=== PATIENT | female | born 1960 | race Caucasian/White ===

== ENCOUNTER 2025-01-16 10:43 | Emergency (ER) | payer MEDICARE, MEDICAID, SELFPAY ==
--- OUTSIDE RECORDS SUMMARY | 2023-08-10 06:25 | XMS_ITS ---
Author Organization [facility] [employer] Address [address] [address] Care Team Providers Care Mental Health Case Manager Name Role Phone Khurram Yang Primary Care Provider [phone] MEDICATIONS Medication SIG (Take, Route, Frequency, Duration) Notes Start Date End Date Status Lancets 30G - Tests once a day E11 .9 Once a day for 50 days 11/08/2020 Active Encounters Encounter Location Date Provider Diagnosis [facility] [employer] [address] [facility] [address] [place] [address] 08/10/2023 Khurram Yang Type 2 diabetes mellitus with other specified complication E11.69 ASSESSMENTS Encounter Date Diagnosis Assessment Notes Treatment Notes Treatment Clinical Notes Section Notes 08/10/2023 Type 2 diabetes mellitus with other specified complication (ICD-10 - E11.69) PLAN OF TREATMENT Medication Medication Name Sig Start Date Stop Date Notes Lancets 30G - Tests once a day E11 .9 Once a day for 50 days 11/08/2020 Progress Notes * Ene RAYDOB:1960 (63 yo F)Acc No.[id number]:08/10/2023 Patient: Ene RAY :1960 Age:63 Y Sex:Female Address:[address] [place] [address] ,[address] [place] [address], [address] * Refills Refill Lancets 30G Miscellaneous, -, E11.9, 50, Tests once a day, Once a day, 50 days, Refills=1 * true * Date:
--- OUTSIDE RECORDS SUMMARY | 2023-09-02 06:00 | XMS_ITS ---
Author Organization [facility] [employer] Address [address] [address] Care Team Providers Care Pipe Fitter Gas Pipe Name Role Phone Khurram Yang Primary Care Provider ALLERGIES Allergen (clinical drug ingredient) Drug/Non Drug Allergy documented on EMR Reaction Allergy Type Onset Date Status Dragweed (uncoded) Unknown Allergy A ctive Milk (uncoded) Unknown Allergy Activ e Peanuts (uncoded) Unknown Allergy Ac tive Roaches (uncoded) Unknown Allergy Ac tive REASON FOR VISIT 3 month f/u MEDICATIONS Medication SIG (Take, Route, Frequency, Duration) Notes Start Date End Date Status Omeprazole 20 MG 1 capsule 30 minutes before morning meal Orally Once a day for 90 days Active Simvastatin 20 MG 1 tablet in the even ing Orally Once a day for 90 days Active Losartan Potassium 25 MG 2 tablet Orally Once a day for 90 days Active Ventolin HFA 108 (90 Base) MCG/ACT 2 puffs as needed Inhalation every 6 hrs for 90 days Active Advair HFA 115-21 MCG/ACT 2 puffs Inhala tion Twice a day for 90 days Active One Touch Ultra Test Strips test strips E11.9 Once a day for 50 days 12/23/2021 Active Vitamin D 50 MCG (2000 UT) 1 tablet Oral ly Once a day for 90 days Active Albuterol Sulfate (2.5 MG/3ML) 0.083% 3 ml as needed Inhalation Three times a day Active oxyBUTYnin Chloride 5 MG 1 tablet Orally Twice a day Active Fluticasone Propionate 50 MCG/ACT 1 spray in each nostril Nasally Once a day for 90 day(s) Active Glucometer of pts. choice Needs to test once daily Tests once a day E11.9 Once a day for 50 days 11/08/2020 Active Topiramate 100 MG 1 tablet Orally Twic e a day for 90 days Active Furosemide 20 MG 1 tablet Orally Once a day for 90 days Active Lancets 30G - Tests once a day E11 .9 Once a day for 50 days 11/08/2020 Active Montelukast Sodium 10 MG 1 tablet Orally Once a day for 90 days Active Sertraline HCl 50 MG 1 tablet Orally Onc e a day for 90 days Active metFORMIN HCl 500 MG 1 tablet with meals Orally Twice a day for 90 days Active SOCIAL HISTORY Sex Assigned At : Social History Observation Description Sex Assigned At Unknown Alcohol Screen Question Answer Notes Did you have a drink containing alcohol in the p ast year? No Points 0 Interpretation Negative Encounters Encounter Location Date Provider Diagnosis [facility] [employer] Teacher Replaced By [facility] [address] 09/02/2023 Khurram Yang ASSESSMENTS Encounter Date Diagnosis Assessment Notes Treatment Notes Treatment Clinical Notes Section Notes 09/02/2023 Other PLAN OF TREATMENT No Information Progress Notes * Ene RAYDOB:1960 (64 yo F)Acc No.[id number]:09/02/2023 Progress Notes Patient: Ene RAY Provider: Khurram Yang MD :1960 Age:63 Y Sex:Female Date:09/02/2023 Address:[address] [place], [place] [id number] Subjective: * Chief Complaints: * 1. 3 month f/u. * Medical History: AAFP Risk Level 3, Arthritis, Anemia, Migraine Headaches, Diabetes Mellitus Type 2, Back Pain, High or Low blood pressure, Stroke, Hypertension, Hyperlipidemia, Depressive Disorder, Obstrucitve Sleep Apnea, Choronic Obstructive Pulmonry Diseae, Refused flu/Pneumonia vaccine 2017/2018/. * Surgical History: Lumbar Disectomy 2004, Colonoscopy 2015. * Hospitalization/Major Diagno stic Procedure: None . * Family History: Father: , diagnosed with Other malignant neoplasm of unspecified site, DM TYPE 2, Hypertension, Unspecified heart disease, Unspecified cerebral artery occlusion with cerebral infarction. Mother: , diagnosed with DM TYPE 2, Unspecified heart disease, Other malignant neoplasm of unspecified site. Siblings: Depression, diagnosed with Unspecified heart disease. Paternal Grand Father: diagnosed with DM TYPE 2. Paternal Grand Mother: diagnosed with Unspecified cerebral artery occlusion with cerebral infarction. 1 brother(s) , 2 sister(s) . . * Social History: Drugs/Alcohol: Drugs Have you used drugs other than those for medical reasons in the past 12 months? No Alcohol Screen Did you have a drink containing alcohol in the past year? No Points 0 Interpretation Negative * Medications: Taking Glucometer of pts. choice Needs to test once daily 30 Test strips Tests once a day E11.9 Once a day , Taking One Touch Ultra Test Strips test strips E11.9 Once a day , Taking Albuterol Sulfate (2.5 MG/3ML) 0.083% Nebulization Solution 3 ml as needed Inhalation Three times a day , Taking Vitamin D 50 MCG (2000 UT) Tablet 1 tablet Orally Once a day , Taking Fluticasone Propionate 50 MCG/ACT Suspension 1 spray in each nostril Nasally Once a day , Taking oxyBUTYnin Chloride 5 MG Tablet 1 tablet Orally Twice a day , Taking Losartan Potassium 25 MG Tablet 2 tablet Orally Once a day , Taking Simvastatin 20 MG Tablet 1 tablet in the evening Orally Once a day , Taking Advair HFA 115-21 MCG/ACT Aerosol 2 puffs Inhalation Twice a day , Taking Ventolin HFA 108 (90 Base) MCG/ACT Aerosol Solution 2 puffs as needed Inhalation every 6 hrs , Taking Omeprazole 20 MG Capsule Delayed Release 1 capsule 30 minutes before morning meal Orally Once a day , Taking metFORMIN HCl 500 MG Tablet 1 tablet with meals Orally Twice a day , Taking Sertraline HCl 50 MG Tablet 1 tablet Orally Once a day , Taking Furosemide 20 MG Tablet 1 tablet Orally Once a day , Taking Topiramate 100 MG Tablet 1 tablet Orally Twice a day , Taking Montelukast Sodium 10 MG Tablet 1 tablet Orally Once a day , Taking Lancets 30G - Miscellaneous Tests once a day E11.9 Once a day * Allergies: Milk, Peanuts, Dragweed, Roaches. Objective: Assessment: Plan: * Treatment: * Images: Care Plan Details* * Sign off status: Pending * Provider: Khurram Yang MD Date: 09/02/2023
[2025-01-16] VITALS (16 sets, daily range): BP systolic 125–146; BP diastolic 74–83; PULSE 56–110; TEMP 36.6; O2SAT 92–99; BMI 34.0
--- NOTE | 2025-01-16 10:49 | ED.GENADUL1 ---
HPI HPI - General Adult General Chief complaint: Seizure Stated complaint: POSSIBLE SEIZURE Time Seen by Provider: 01/16/25 10:44 History of Present Illness HPI narrative: 64-year-old female to the emergency department chief complaint of seizure-like episode at her snf. Patient was reported to have been staring off in the activity center staff was concerned that she might have a seizure so they laid her down on the ground. The patient had some shaking movements. She returned back to her baseline afterwards. No postictal period. patient reports she is otherwise been at her baseline health. She denies any vision changes, numbness, weakness, tingling, difficulty walking. She denies any chest pain, shortness of breath or palpitations. Past medical history: Major depressive disorder, type 2 diabetes, hypertension, emphysema, TIA, conversion disorder with seizure-like activity, migraines Related Data Home Medications ?Medication ?Instructions ?Recorded ?Confirmed acetaminophen 500 mg capsule 500 mg PO Q6H PRN pain 01/16/25 01/16/25 albuterol sulfate 90 mcg/actuation 2 inh inhalation Q6H PRN shortness 01/16/25 01/16/25 aerosol inhaler of breath or wheezing amitriptyline 25 mg tablet 25 mg PO .qhs 01/16/25 01/16/25 aspirin 81 mg tablet,delayed 81 mg PO DAILY 01/16/25 01/16/25 release (Adult Aspirin Regimen) bisacodyl 5 mg tablet,delayed 5 mg PO DAILY PRN constipation 01/16/25 01/16/25 release (Fleet Bisacodyl) cholecalciferol (vitamin D3) 25 50 mcg PO DAILY 01/16/25 01/16/25 mcg (1,000 unit) capsule (Vitamin D3) clopidogrel 75 mg tablet 75 mg PO DAILY 01/16/25 01/16/25 dextromethorphan-guaifenesin 10 10 ml PO Q6H PRN cough 01/16/25 01/16/25 mg-100 mg/5 mL oral liquid empagliflozin 25 mg tablet 25 mg PO DAILY 01/16/25 01/16/25 (Jardiance) fluticasone 250 mcg-salmeterol 50 1 inh inhalation BID 01/16/25 01/16/25 mcg/dose blistr powdr for inhalation fluticasone propionate 50 1 spray intranasal DAILY 01/16/25 01/16/25 mcg/actuation nasal spray,suspension (24 Hour Allergy Relief) furosemide 20 mg tablet 20 mg PO DAILY 01/16/25 01/16/25 gabapentin 100 mg capsule 100 mg PO .qhs 01/16/25 01/16/25 losartan 50 mg tablet 50 mg PO DAILY 01/16/25 01/16/25 magnesium hydroxide 400 mg/5 mL 30 ml PO DAILY PRN constipation 01/16/25 01/16/25 oral suspension (Milk of Magnesia) mecobalamin (vitamin B12) 1,000 2,000 mcg PO DAILY 01/16/25 01/16/25 mcg chewable tablet meloxicam 15 mg tablet 15 mg PO DAILY 01/16/25 01/16/25 metformin 500 mg tablet 500 mg PO DAILY 01/16/25 01/16/25 montelukast 10 mg tablet 10 mg PO QPM 01/16/25 01/16/25 omeprazole 20 mg capsule,delayed 20 mg PO DAILY 01/16/25 01/16/25 release potassium chloride 10 mEq 10 meq PO DAILY 01/16/25 01/16/25 capsule,extended release sertraline 100 mg tablet 100 mg PO DAILY 01/16/25 01/16/25 simvastatin 20 mg tablet 20 mg PO QPM 01/16/25 01/16/25 topiramate 200 mg tablet (Topamax) 200 mg PO BID 01/16/25 01/16/25 Allergies Allergy/AdvReac Type Severity Reaction Status Date / Time No Known Drug Allergies Allergy Verified 01/16/25 10:43 Review of Systems ROS Status of ROS 10 or more systems reviewed and unremarkable except as noted in history and below PFSH PFS Social History Little interest or pleasure in doing things: not at all Feeling down, depressed, or hopeless: not at all Exam Narrative Exam Narrative: VITALS: I have reviewed the triage vital signs. GENERAL: Well developed, well appearing adult in no acute distress. NEURO: Alert and oriented x4. Moves all extremities. Face is symmetric and expressive. Cranial nerves II through XII grossly intact as tested. Muscular strength and sensation grossly intact upper and lower extremities bilaterally. No dysarthria. No aphasia. No ataxia. Normal gait. NIHSS 0. EYES: PERRL. No scleral icterus or conjunctival injection. No discharge. HENT: Normocephalic, atraumatic. Hearing is grossly intact. Nares grossly patent and without discharge. Mucous membranes moist. NECK: No JVD. Patient moves neck without restriction. CARDIO: Rhythm regular. Normal rate. No murmur, rub, or gallop. Pulses equal bilaterally in the upper and lower extremity. No lower extremity edema. PULM: Lungs clear to auscultation in all martinez. No wheezes, rales, or rhonchi. No conversational dyspnea. No splinting, stridor, or accessory muscle use. GI/: Abdomen is soft and non-tender. Normoactive bowel sounds. EXTREMITIES: Symmetric muscle bulk. No joint swelling. No clubbing, cyanosis, or deformity. SKIN: Warm and dry. Normal turgor. No rash or lesions appreciated. PSYCH: Mood, affect, and interaction is appropriate to the setting. Constitutional Vital Signs, click to edit/add: Last Vital Signs Temp 97.9 F 01/16/25 10:44 Pulse 59 L 01/16/25 11:20 Resp 15 01/16/25 11:20 BP 146/83 H 01/16/25 10:44 Pulse Ox 96 01/16/25 11:20 O2 Del Method Room Air 01/16/25 10:44 Course Vital Signs Vital signs: Vital Signs Blood Pressure 146/83 H 01/16/25 10:43 Temperature 97.9 F 01/16/25 10:44 Pulse Rate 59 L 01/16/25 11:20 Respiratory Rate 15 01/16/25 11:20 Blood Pressure 146/83 H 01/16/25 10:44 Pulse Oximetry 96 01/16/25 11:20 Oxygen Delivery Method Room Air 01/16/25 10:44 Medical Decision Making [facility] Narrative Medical decision making narrative: 64-year-old female to the emergency department with chief complaint of seizure-like activity event that occurred at her snf. Vital stable, the patient is afebrile. She has a history of conversion disorder with seizure activity in her medical history. Episode does not sound like a true seizure, no postictal phase, history of pseudoseizures. Cannot obtain a good history on her seizure episodes however. Will obtain basic labs and imaging. CT head without acute findings. Lab work is unremarkable Discussion was had with her POA/ niece at the bedside. Patient has longstanding history of psychogenic nonepileptic seizures. She has been seen dozens of times at [facility] as well as [facility] for this. She is currently working with neurology and counseling. Patient appropriate for discharge back to her facility. Recommend she also get psychiatry involved given the complexity and longstanding issue with these psychogenic nonepileptic seizures. Medical Records Medical records reviewed: Yes I reviewed the patient's medical records Lab Data Labs: Lab Results 01/16/25 Range/Units 11:03 WBC 5.3 (4.0-11.0) 10^3/uL RBC 3.40 L (4.20-5.40) 10^6/uL Hgb 10.7 L (12.0-16.0) g/dL Hct 33.2 L (36.0-48.0) % MCV 97.6 (81.0-99.0) fL MCH 31.5 (26.7-34.0) pg MCHC 32.2 (29.9-35.2) g/dL RDW 14.6 (11.0-15.0) % Plt Count 285 (150-450) 10^3/uL MPV 9.7 (9.5-13.5) fL Neut % (Auto) 65.2 (43.0-75.0) % Lymph % (Auto) 24.2 (20.5-60.0) % Allen % (Auto) 6.3 (1.7-12.0) % Eos % (Auto) 3.2 (0.9-7.0) % Baso % (Auto) 0.9 (0.2-2.0) % Neut # (Auto) 3.4 (1.4-6.5) 10^3/uL Lymph # (Auto) 1.3 (1.2-3.8) 10^3/uL Allen # (Auto) 0.3 (0.3-0.8) 10^3/uL Eos # (Auto) 0.2 (0.0-0.7) 10^3/uL Baso # (Auto) 0.1 (0.0-0.1) 10^3/uL Abs Immat Gran (auto) 0.01 (0.00-0.03) 10^3/uL Imm/Tot Granulo (auto) 0.2 (0.0-0.5) % Sodium 144 (136-145) mmol/L Potassium 3.9 (3.5-5.1) mmol/L Chloride 110 H (98-107) mmol/L Carbon Dioxide 28.5 (21.0-32.0) mmol/L Anion Gap 9.4 BUN 25.0 H (7.0-18.0) mg/dL Creatinine 1.08 H (0.55-1.02) mg/dL Est GFR ( Amer) >60 (>=60 mL/min/1.73m^2) Est GFR (Non-Af Amer) 51 L (>=60 mL/min/1.73m^2) BUN/Creatinine Ratio 23.1 Glucose 108 H (74-106) mg/dL Calcium 8.8 (8.5-10.1) mg/dL Troponin I High Sens 4.9 (4.0-51.3) pg/mL ECG Data Attestation: I personally reviewed and interpreted this ECG as follows: (NSR@59. No STEMI. Normal QTC 409. ) Discharge Plan Discharge Chief Complaint: Seizure Clinical Impression: Psychogenic nonepileptic seizure Patient Disposition: Home, Self-Care Condition: Good Mode of Transportation: Private Vehicle Prescriptions / Home Meds: No Action acetaminophen 500 mg capsule 500 mg PO Q6H PRN (Reason: pain) amitriptyline 25 mg tablet 25 mg PO .qhs albuterol sulfate 90 mcg/actuation HFA aerosol inhaler 2 inh inhalation Q6H PRN (Reason: shortness of breath or wheezing) aspirin [Adult Aspirin Regimen] 81 mg tablet,delayed release (DR/EC) 81 mg PO DAILY bisacodyl [Fleet Bisacodyl] 5 mg tablet,delayed release (DR/EC) 5 mg PO DAILY PRN (Reason: constipation) clopidogrel 75 mg tablet 75 mg PO DAILY fluticasone propionate [24 Hour Allergy Relief] 50 mcg/actuation spray,suspension 1 spray intranasal DAILY Rx Instructions: administer into each nostril fluticasone propion-salmeterol 250-50 mcg/dose blister with device 1 inh inhalation BID furosemide 20 mg tablet 20 mg PO DAILY gabapentin 100 mg capsule 100 mg PO .qhs dextromethorphan-guaifenesin 10-100 mg/5 mL liquid 10 ml PO Q6H PRN (Reason: cough) Jardiance 25 mg tablet 25 mg PO DAILY losartan 50 mg tablet 50 mg PO DAILY meloxicam 15 mg tablet 15 mg PO DAILY metformin 500 mg tablet 500 mg PO DAILY magnesium hydroxide [Milk of Magnesia] 400 mg/5 mL suspension 30 ml PO DAILY PRN (Reason: constipation) montelukast 10 mg tablet 10 mg PO QPM omeprazole 20 mg capsule,delayed release(DR/EC) 20 mg PO DAILY potassium chloride 10 mEq capsule, extended release 10 meq PO DAILY sertraline 100 mg tablet 100 mg PO DAILY simvastatin 20 mg tablet 20 mg PO QPM topiramate [Topamax] 200 mg tablet 200 mg PO BID mecobalamin (vitamin B12) 1,000 mcg tablet,chewable 2,000 mcg PO DAILY cholecalciferol (vitamin D3) [Vitamin D3] 25 mcg (1,000 unit) capsule 50 mcg PO DAILY Print Language: Jordanian Instructions: Conversion Disorder (ED) Additional Instructions: Call the office of your primary care doctor to arrange for follow-up within the above-stated timeframe. Your ED visit was focused on your acute issue and does not replace primary care. You should review your labs, imaging, and diagnoses from this ED visit with your primary care physician. There may be non-emergent/ incidental findings that need further evaluation. You should review your vital signs including blood pressure with your PCP. If you were prescribed medications you should discuss possible side-effects and drug interactions with your pharmacist. Call 911 or go to the nearest Emergency Department if you develop any new or worsening symptoms. Continue follow-up with neurology. Consider psychiatry consultation on this patient with longstanding psychogenic nonepileptic seizures as well. Referrals: JOVI BALLARD [Primary Care Provider, Family Practice] - 1 week
--- NOTE | 2025-01-16 10:54 | ECG_ITS ---
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 Measurements Intervals [place] Rate: 59 P: -12719 [place]: 186 QRS: 72 QRSD: 86 T: 90 QT: 410 QTc: 409 Interpretive Statements Normal sinus rhythm 8102 Low QRS voltage in chest leads abnormal ECG No previous ECG available for comparison Electronically Signed On 01-17-2025 6:36:44 EDT by SADIE HERNANDEZ M.D.
--- NOTE | 2025-01-16 10:55 | CT_ITS ---
The [address] [address] Patient Name: PAYTON WING MRN: [id number] date: 1960 Sex: F Assigned Patient Location: ER Current Patient Location: .[facility] Accession/Order Number: [id number] Exam Date: 01/16/2025 11:46 Report Date: 01/16/2025 11:50 At the request of: MICHELL AGUDELO MD Procedure: CT head/brain wo con CT BRAIN WITHOUT CONTRAST: CLINICAL HISTORY: seizure activity and frontal headaches COMPARISON: None TECHNIQUE: Contiguous axial unenhanced images were obtained through the brain. This CT exam was performed using one or more following dose reduction techniques: Automated exposure control, adjustment of the mA and/or kV according to patient size, or use of iterative reconstruction technique. FINDINGS: There is cortical atrophy, greatest in the frontal region. The ventricles are normal in size and position. Subtle white matter hypodensity is noted. There is minor carotid siphon plaque and this may be microvascular disease. There are no additional areas of abnormal attenuation. There is no hemorrhage, mass effect or extra-axial collections. Empty sella is suspected. The imaged paranasal sinuses and mastoid air cells are clear. CT/CT head/brain wo con IMPRESSION: ATROPHY AND MINOR SUSPECTED MICROVASCULAR CHANGES. NO ACUTE INTRACRANIAL ABNORMALITY. Impression dictated by: Melina Freeman M.D. 01/16/2025 11:50 AM Dictation Location: [place] [address] Electronically authenticated by: [id number] Y Date: 01/16/2025 11:50
[2025-01-16 11:10] LABS: Hematocrit 33.2 % (36.0-48.0); Hemoglobin 10.7 g/dL (12.0-16.0); Immature Granulocytes Abs Auto 0.01 10^3/uL (0.00-0.03); Immature Granulocytes Pct Auto 0.2 % (0.0-0.5); Lymphocytes Absolute Auto 1.3 10^3/uL (1.2-3.8); Mean Corpuscular HGB Conc 32.2 g/dL (29.9-35.2); Mean Corpuscular Hemoglobin 31.5 pg (26.7-34.0); Mean Corpuscular Volume 97.6 fL (81.0-99.0); Platelet Count 285 10^3/uL (150-450); Red Blood Count 3.40 10^6/uL (4.20-5.40); White Blood Count 5.3 10^3/uL (4.0-11.0)
[2025-01-16 11:37] LABS: Anion Gap 9.4; Blood Urea Nitrogen 25.0 mg/dL (7.0-18.0); Calcium 8.8 mg/dL (8.5-10.1); Carbon Dioxide 28.5 mmol/L (21.0-32.0); Chloride 110 mmol/L (98-107); Estimated GFR (African America >60 (>=60 mL/min/1.73m^2); Estimated GFR (Non-African Ame 51 (>=60 mL/min/1.73m^2); Glucose 108 mg/dL (74-106); Potassium 3.9 mmol/L (3.5-5.1); Sodium 144 mmol/L (136-145)
--- OUTSIDE RECORDS SUMMARY | 2025-01-16 11:37 | XMS_ITS | Encounter Summary ---
Author Organization [facility] Address [id number] [address] [place] [address] Care Team Providers Care Heat Treatment Technician Name Role Phone Yanick Cornejo Primary Care Provider + Reason for Visit * Reason Comments Med Refill Encounter Details Date Type Department Care Team ([facility] st Contact Info) Description 05/24/2024 Refill [facility] [address] [place] [address] Yanick Cornejo APRN-CNP [address] [place] [address] Intractable migraine without status migrainosus, unspecified migraine type Social History Tobacco Use Types Packs/Day Years Used Date Smoking Tobacco: Former Cigarettes Smokeless Tobacco: Never Alcohol Use Standard Drinks/Week Comments Not Currently 0 (1 standard drink = 0.6 oz pur e alcohol) AUDIT-C Answer Date Recorded Q1: How often do you have a drink containing alcohol? Never 05/02/2023 Q2: How many drinks containi ng alcohol do you have on a typical day when you are drinking? Patient does not drink Q3: How often do you have si x or more drinks on one occasion? Never 05/02/2023 PHQ-2 Answer Date Recorded Total Score 2 02/15/2024 Childcare Answer Date Recorded Childcare Unknown 12/27/2018 Employment Answer Date Recorded Employment Unknown 12/27/2018 Hunger Screening Answer Date Recorded Within the past 12 months we worried whether our food would run out before we got money to buy more. Never True 04/21/2024 Within the past 12 months th e food we bought just didn't last and we didn't have money to get more. Never True 04/21/2024 Purpose - Life Answer Date Recorded Purpose and direction in life Unknown Comments Unknown Sex and Gender Information Value Date Recorded Sex Assigned at Not on file Legal Sex Female 8:50 PM EDT Gender Identity Not on file Sexual Orientation Not on file documented as of this encounter Plan of Treatment Upcoming Encounters Date Type Department Care Team ([facility] Contact Info) Description 03/15/2025 10:00 AM EDT Office Visit [facility] [address] [place] [address] Yanick Cornejo, WINCH DERRICK OPERATOR-MORTGAGE ANALYST [address] [place] [phone] 06/12/2025 11:00 AM EST Office Visit [facility] [address] [place] [phone] documented as of this encounter Visit Diagnoses Diagnosis Intractable migraine without status migrainosus, unspecified migraine type documented in this encounter Additional Health Concerns Assessment Noted Time PHQ-9 Depression Total Score: 2 02/15/20 24 9:44 AM EDT A Body Mass Index follow-up plan has been documented for the patient 03/16/2024 2:19 PM EDT documented as of this encounter Care Teams Heat Treatment Technician Relationship Specialty Start Date End Date Yanick Cornejo, WINCH DERRICK OPERATOR-MORTGAGE ANALYST [address] [place] [phone] PCP - General Nurse Practitioner 02/15/24 documented as of this encounter
--- OUTSIDE RECORDS SUMMARY | 2025-01-16 11:37 | XMS_ITS | Patient Health Record ---
Author Organization [facility] [employer] Address [address] [address] Care Team Providers Care Management Lead Name Role Phone Khurram Yang Primary Care Provider [phone] ALLERGIES Allergen (clinical drug ingredient) Drug/Non Drug Allergy documented on EMR Reaction Allergy Type Onset Date Status Dragweed (uncoded) Unknown Allergy A ctive Milk (uncoded) Unknown Allergy Activ e Peanuts (uncoded) Unknown Allergy Ac tive Roaches (uncoded) Unknown Allergy Ac tive REASON FOR REFERRAL No Information MEDICATIONS Medication SIG (Take, Route, Frequency, Duration) Notes Start Date End Date Status Glucometer of pts. choice Needs to test once daily Tests once a day E11.9 Once a day for 50 days 11/08/2020 Active Omeprazole 20 MG 1 capsule 30 minutes before morning meal Orally Once a day for 90 days Active Vitamin D 50 MCG (2000 UT) 1 tablet Oral ly Once a day for 90 days Active Topiramate 100 MG 1 tablet Orally Twic e a day for 90 days Active Albuterol Sulfate (2.5 MG/3ML) 0.083% 3 ml as needed Inhalation Three times a day Active Furosemide 20 MG 1 tablet Orally Once a day for 90 days Active oxyBUTYnin Chloride 5 MG 1 tablet Orally Twice a day Active Lancets 30G - Tests once a day E11 .9 Once a day for 50 days 11/08/2020 Active Fluticasone Propionate 50 MCG/ACT 1 spray in each nostril Nasally Once a day for 90 day(s) Active Montelukast Sodium 10 MG 1 tablet [...] a day for 50 days 12/23/2021 Active Sertraline HCl 50 MG 1 tablet Orally Onc e a day for 90 days Active metFORMIN HCl 500 MG 1 tablet with meals Orally Twice a day for 90 days Active IMMUNIZATIONS Vaccine Route Administration Date Status Comme nts Influenza Quad-Sanofi Unknown 05/10/2019 Administered Flucelvax 2020 IM Intramuscular 05/08/2021 Administered Flucelvax Unknown 05/23/2022 Administered COVID 19-Pfizer Unknown 01/28/2021 Administered COVID 19-Pfizer Unknown 02/18/2021 Administered Covid 19 Bivalent Booster Pfser Unknown 05/23/2022 Administered Afluria IM Intramuscular 04/26/2023 Administered SOCIAL HISTORY Sex Assigned At : Social History Observation Description Sex Assigned At Unknown Alcohol Screen Question Answer Notes Did you have a drink containing alcohol in the p ast year? No Points 0 Interpretation Negative PROBLEMS Problem Type ICD Code Onset Dates Problem Status W/U Status Risk SNOMED Code Notes Problem Depressive disorder (F32.9) Active confirmed Depressive disorder (07249298) Problem Obstructive sleep apnea (G47.33) Active confirmed Obstructive s leep apnea (53872058) Problem Hypothyroid (E03.9) Active confirmed Hypothyroid (92187185) Problem Type 2 diabetes mellitus with other specified complication (E11.69) Active confirmed 24625429 Problem Obesity, unspecified (E66.9) Active confirmed 951134722 Problem Other emphysema (J43.8) Active confirmed 45743704 Problem Other specific arthropathies, not elsewhere classified, left shoulder (M12.812) Active confirmed 304473432 Problem Unspecified rotator cuff tear or rupture of left shoulder, not specified as traumatic (M75.102) Active confirmed [id number] Problem Urge incontinence (N39.41) Active confirmed 23394901 Problem Essential hypertension (I10) Active confirmed 84882644 Problem Diabetes, polyneuropathy (E11.42) Active confirmed Polyneuropathy due to type 2 diabetes mellitus (261896748) Problem Hyperlipidemia, unspecified hyperlipidemia type (E78.5) Active confirmed 87438519 Problem Risk Level 3 (RL000.3) Active confirmed Problem Migraine without aura and without status migrainosus, not intractable (G43.009) Active confirmed 729251459 PLAN OF TREATMENT Pending Test Test Name Order Date Echocardiogram 08/13/2020 MRI : Upper Ext Joint W and WO Contrast 09/01/2019 MRI : Upper Ext Joint W/O Contrast 09/06 Polysomnogram 08/21/2022 Pulmonary Function Test with bronchodilators and methacholine challenge test 12/01/2019 LEXISCAN CARDIOLYTE STRESS TEST 01/12/20 20 EMG/NCV LEGS 11/06/2021 Glucose Random 01/31/2019 CBC w/ Auto Diff 07/01/2018 CBC w/ Auto Diff 10/04/2018 CBC w/ Auto Diff 12/01/2019 CBC w/ Auto Diff 08/09/2020 CBC w/ Auto Diff 04/12/2018 CBC w/ Auto Diff 09/30/2017 Comprehensive Metabolic Panel 09/30/2017 Comprehensive Metabolic Panel 04/12/2018 Comprehensive Metabolic Panel 08/09/2020 Comprehensive Metabolic Panel 12/01/2019 Comprehensive Metabolic Panel 10/04/2018 Comprehensive Metabolic Panel 07/01/2018 Hemoglobin A1c 10/04/2018 Hemoglobin A1c 08/21/2022 Hemoglobin A1c 09/30/2017 TSH 09/30/2017 TSH 04/12/2018 TSH 07/01/2018 TSH 10/04/2018 TSH 12/01/2019 TSH 08/09/2020 Free T4 08/09/2020 Free T4 12/01/2019 Free T4 07/01/2018 Free T4 10/04/2018 Free T4 04/12/2018 Free T4 09/30/2017 MA Digital Screening Breast w/ Tomosynth esis 01/11/2018 MA Digital Screening Breast w/ Tomosynth esis 04/26/2023 MA Digital Screening Breast w/ Tomosynth esis 02/07/2021 MA Digital Screening Breast w/ Tomosynth esis 10/04/2018 MA Digital Screening Breast w/ Tomosynth esis 07/01/2018 Insurance Providers Payer Name Payer Address Payer Phone Subscriber Number Group Number Insured Name Patient Relationship to Insured Coverage Start Date Coverage End [place] [address] [place] [address] [id number] Flor, Ene Self - patient is the insured Medicaid [address] [place] [phone] [id number] Ene Ray Self - patient is the insured MEDICAL (GENERAL) HISTORY Medical History History ICD Code AAFP Risk Level 3 Arthritis Anemia Migraine Headaches Diabetes Mellitus Type 2 Back Pain High or Low blood pressure Stroke Hypertension Hyperlipidemia Depressive Disorder Obstrucitve Sleep Apnea Choronic Obstructive Pulmonry Diseae Refused flu/Pneumonia vaccine 2017/2018/ Surgical History Surgery Date(Month/Year) Lumbar Disectomy 2004 Colonoscopy 2015 Hospitalization History Reason Date(Month/Year) None
--- OUTSIDE RECORDS SUMMARY | 2025-01-16 11:37 | XMS_ITS | Encounter Summary ---
Author Organization [facility] Address [address] [place] [address] Care Team Providers Care Synchronizer Name Role Phone Unavailable Primary Care Provider Unavailabl e Encounter Details Date Type Department Care Team (Late st Contact Info) Description 09/14/2023 Abstract [facility] [address] [facility] [address] [place] [id number] Hamida Parsons MD [address] [facility] [address] [place] [address] Social History Tobacco Use Types Packs/Day Years Used Date Smoking Tobacco: Never Assessed Comments Unknown Sex and Gender Information Value Date Recorded Sex Assigned at Not on file Legal Sex Female 8:31 AM EST Gender Identity Not on file Sexual Orientation Not on file documented as of this encounter Plan of Treatment Not on file documented as of this encounter Visit Diagnoses Not on filedocumented in this encounter
--- OUTSIDE RECORDS SUMMARY | 2025-01-16 11:37 | XMS_ITS | Encounter Summary ---
Author Organization [employer] Address [id number] [address] [place] [address] Care Team Providers Care Store Stock Associate Name Role Phone Yanick Cornejo Gil HAJI Primary Care Provider + Encounter Details Date Type Department Care Team (Late st Contact Info) Description 05/02/2023 Orders Only [facility] [address] [place] [address] External, Scanning Provider Pain (Primary Dx) Social History Tobacco Use Types Packs/Day Years Used Date Smoking Tobacco: Never Smokeless Tobacco: Never AUDIT-C Answer Date Recorded Q1: How often do you have a drink containing alcohol? Never 05/02/2023 Q2: How many drinks containi ng alcohol do you have on a typical day when you are drinking? Patient does not drink Q3: How often do you have si x or more drinks on one occasion? Never 05/02/2023 PHQ-2 Answer Date Recorded Total Score 0 05/02/2023 Childcare Answer Date Recorded Childcare Unknown 12/27/2018 Employment Answer Date Recorded Employment Unknown 12/27/2018 Purpose - Life Answer Date Recorded Purpose and direction in life Unknown Comments Unknown Sex and Gender Information Value Date Recorded Sex Assigned at Not on file Legal Sex Female 8:50 PM EDT Gender Identity Not on file Sexual Orientation Not on file documented as of this encounter Functional Status * Audit-C Score Answer Date of Assessment Author 0 05/02/2023 8:08 PM EDT Chetna Stout RN * Question Answer Date of Assessment Author Q1: How often do you have a drink containing alcohol? Never 05/02/2023 8:08 PM EDT Chetna Stout RN Q2: How many drinks containing alcohol do you have on a typical day when you are drinking? Patient does not drink 05/02/2023 8:08 PM EDT Chetna Stout RN Q3: How often do you have six or more drinks on one occasion? Never 05/02/2023 8:08 PM EDT Chetna Stout RN * Question Answer Date of Assessment Author Functional Status Independent 05/02/2023 8:05 PM EDT Chetna Stout RN documented as of this encounter Mental Status * Question Answer Entry Date Author Overall Cognitive Status WFL 05/03/2023 4:02 PM EDT Michelet Gaytan PT documented in this encounter Plan of Treatment Upcoming Encounters Date Type Department Care Team ([facility] st Contact Info) Description 03/15/2025 10:00 AM EDT Office Visit [facility] [address] [place] [phone] Yanick Cornejo, ALLOCATIONS CLERK-IMPORTER OR EXPORTER [address] [phone] 06/12/2025 11:00 AM EST Office Visit [facility] [address] [place] [phone] documented as of this encounter Results * CT abdomen and pelvis with contrast (05/01/2023 3:55 PM EDT) us Scanning Provider External IMG CT ORDERABLES Fin al Result * CT brain without contrast (05/01/2023 3:50 PM EDT) us Scanning Provider External IMG CT ORDERABLES Fin al Result documented in this encounter Visit Diagnoses Diagnosis Pain- Primary Generalized pain documented in this encounter Additional Health Concerns Assessment Noted Time PHQ-9 Depression Total Score: 0 05/02/20 23 8:08 PM EDT documented as of this encounter Care Teams Store Stock Associate Relationship Specialty Start Date End Date Yanick Cornejo, ALLOCATIONS CLERK-IMPORTER OR EXPORTER [address] [place] [phone] PCP - General Nurse Practitioner 02/15/24 documented as of this encounter
--- OUTSIDE RECORDS SUMMARY | 2025-01-16 11:37 | XMS_ITS | Encounter Summary ---
Author Organization [facility] Address [address] [place] [address] Care Team Providers Care Bulker Name Role Phone Yanick Cornejo APRN - [employer] Primary Care Provider [phone] Encounter Details Date Type Department Care Team (Late st Contact Info) Description 05/02/2023 Direct Admit Orders [facility] [address] [place], [place] [id number] Francisco Shirley, [address] Hospitalist [place], [place] [phone] Social History Tobacco Use Types Packs/Day Years Used Date Smoking Tobacco: Never Smokeless Tobacco: Never Alcohol Use Standard Drinks/Week Comments Not Currently 0 (1 standard drink = 0.6 oz pur e alcohol) Comments Unknown Sex and Gender Information Value Date Recorded Sex Assigned at Not on file Legal Sex Female 5:41 PM EST Gender Identity Not on file Sexual Orientation Not on file documented as of this encounter Plan of Treatment Not on file documented as of this encounter Visit Diagnoses Not on filedocumented in this encounter Care Teams Bulker Relationship Specialty Start Date End Date Yanick Cornejo APRN - NP [address] [place] [phone] PCP - General Nurse Practitioner 05/28/24 documented as of this encounter
--- OUTSIDE RECORDS SUMMARY | 2025-01-16 11:37 | XMS_ITS ---
Author Organization [facility] Care Team Providers [facility] Recruiting Intern Name Role Phone Justus Mathew Unavailable Unavailable Allergies and adverse reactions No Known Allergies Care Team Name Role Address Phone Organization Dates Justus Mathew PCP [address] [place], [address], [place] (Office): : : [facility] 12/06/2024 - present Imaging Narrative Note Date Imaging Narrative No te 12/29/2024 Chest X-Ray AP/RPO:. Examination: Views of the chest (2 VIEWS)Clinical History: Congestive heart failureTechnique: Two views of the chest obtained on 12/29/24Comparison: None.See NoteFindings: The cardiomediastinal silhouette is enlarged. There is pulmonary vascular congestion. The lungs are without focal consolidation or pleural effusion. There is no pneumothorax. The visualized osseous structures demonstrate degenerative changes.Lines and Tubes: None..IMPRESSION:No gross focal consolidation...Electronically Signed By: Dr. Stuart Castellanos M.D. 12/29/2024 See Attachment Goals Section Goals Description Status Target Date [place] decision regarding healthcare choices Acti ve 03/12/2025 [place] need for services will be met while residing in nursing facility Active 03/12/2025 [place] will be free from adverse side effects Act tali 03/12/2025 [place] will be free from complications of inconti nence Active 03/12/2025 [place] will be free from comp lications of medical conditions and be free from adverse effects of medications and treatments Active 03/12/2025 [place] will be free from injury from seizure acti vity Active 03/12/2025 [place] will be free from signs of abnormal bleedi ng Active 03/12/2025 [place] will be free from skin breakdown Active 03/12/2025 [place] will be free from symp toms and complications of hypoglycemia or hyperglycemia Active 03/12/2025 [place] will be free from symptoms of respiratory distress . Active 03/12/2025 [place] will be free of infect ion, pain or bleeding in the oral cavity Active 03/12/2025 [place] will be free of sympto ms of dehydration and maintain moist mucous membranes, good skin turgor. Active 03/12/2025 [place] will express satisfact ion with type of activities and level of activity involvement when asked through Active 03/12/2025 [place] will have care needs met daily with assist ance of staff. Active 03/12/2025 [place] will have improved moo d state as evidenced by a decrease in frequency of mood symptoms Active 03/12/2025 [place] will have no indications of acute eye prob lems. Active 03/12/2025 [place] will have no indications of psychosocial w ell being problem Active 03/12/2025 [place] will have positive adjustment to the facil ity Active 03/12/2025 [place] will have reduced risk for falls and fall related injuries Active 03/12/2025 [place] will maintain optimal quality of life within limitation imposed by visual function. Active 03/12/2025 [place] will participate in le aves of absences (DINA) with family/friends and follow facility DINA rules Active [place] will pass soft, formed stool at the least every 3 days Active 03/12/2025 [place] will receive appropria te specialized services to attain or maintain their highest practicable psychological, physical, functional and psychosocial well being Active 03/12/2025 [place] will successfully adjust to adjunct faculty for medical terminology resi dence at facility Active 03/12/2025 [place] will verbalize adequate relief of pain Act tali 03/12/2025 [place]'s Discharge goals will be met. Active 03/12/2025 [place]'s psychosocial, mental health and behavioral needs will be met. Active 03/12/2025 The resident will be free fr om complications and symptoms of cardiac dysfunction Active 03/12/2025 Will maintain CBW without si gnificant weight changes w ill complete >75% of meals w ill have intact skin Active 03/12/2025 Functional Status Code Name Recorded Time Value Entered By Bathing 01/16/2025 Not assessed [id number] Chair/bko-ci-zuhgv transfer 01/16/2025 Setup or tameka n-up assistance [facility] Eating 01/16/2025 Setup or clean-up assistance [facility] Feeding or Eating 01/16/2025 Independent [facility] Lying to sitting on side of bed 01/16/2025 [facility] Oral hygiene 01/16/2025 [facility] Personal hygiene 01/16/2025 Partial/moderate assista nce [facility] Roll left and right 01/16/2025 Setup or clean-up ass istance [facility] Shower/bathe self 01/16/2025 Not assessed [facility] Sit to lying 01/16/2025 Setup or clean-up assistance [facility] Sit to stand 01/16/2025 Setup or clean-up [facility] Toilet transfer 01/16/2025 Setup or clean-up assista [facility]ce [facility] Toileting hygiene 01/16/2025 Partial/moderate assist ance [facility] Walk 10 feet 01/16/2025 Supervision or t ouching assistance [facility] Walk 150 feet 01/16/2025 Supervision or [facility]uching [facility] Walk 50 feet 01/16/2025 Supervision or t [facility]uching [facility] Immunizations Immunization Status Vaccine Details Vaccine Code CodeSystem Date Notes TB 1 Step Mantoux (PPD) completed tuberculin skin test; unspecified formulation lotNumber: [id number] expiry: 03/19/2026 Mfg: [employer] Given 0.1 ml Left Forearm intradermally 98 CVX created date: 12/07/2024 consent date: 12/06/2024 administer ed date: 12/07/2024 Educated by on 12/08/2024 TB 2 Step Mantoux Skin Test completed tuberculin skin test; unspecified formulation lotNumber: [id number] expiry: 03/19/2026 Given 0.1 ml Right Forearm intradermally Step 1 of Multi-step with next step required 98 CVX created date: 12/16/2024 consent date: 12/15/2024 administer ed date: 12/15/2024 Educated by on 12/17/2024 Medications Section Medication Name Status Code CodeSystem Dose Route Frequency Admin Type Sig Text Start Date End Date Acetaminophen Tablet 500 MG active RXNORM 2 tablet Oral as needed PRN Give 2 tablet by mouth every 6 hours as needed for Pain NTE 3GM in 24 hours AND Give 1 tablet by mouth every 6 hours as needed for pain NTE 3gm in 24 hours 2024 - RXNORM 1 tablet Oral as needed PRN Give 2 tablet by mouth every 6 hours as needed for Pain NTE 3GM in 24 hours AND Give 1 tablet by mouth every 6 hours as needed for pain NTE 3gm in 24 hours 2024 - Milk of Magnesia Suspension 400 MG/5ML active 948617 RXNORM 30 ml Oral as needed PRN Give 30 ml by mouth every 24 hours as needed for Consti pation If no bowel moveme nt for 3 days* 2024 - Fleet Oil Enema active 1 dose Rectal as needed PRN Insert 1 dose rectal ly every 24 hours as needed for Consti pation IF NO RESULT S FROM DULCOL AX, ADMINS ITER FLEET ENEMA RECTAL LY DAILY NEEDED FOR CONSTI PATION 2024 - Dulcolax Suppository 10 MG active 625171 RXNORM 1 suppos itory Rectal as needed PRN Insert 1 suppos itory rectal ly every 24 hours as needed for Consti pation IF NO RESULT FROM MILK OF MAGNES IA, ADMINI STER DULCOL AX SUPPOS ITORY RECTAL LY AT BEDTIM E FOR CONSTI PATION 2024 - Furosemide Oral Tablet 20 MG active 070909 RXNORM 1 tablet Oral one time a day Routine Give 1 tablet by mouth one time a day for diuret ic 2024 - Omeprazole Oral Tablet Delayed Release 20 MG active 476530 RXNORM 1 tablet Oral one time a day Routine Give 1 tablet by mouth one time a day for GERD 2024 - Vitamin D3 Oral Tablet 25 MCG (1000 UT) active 2 tablet Oral one time a day Routine Give 2 tablet by mouth one time a day for vit d defici ency 2024 - Albuterol Sulfate HFA Inhalation Aerosol Solution 108 (90 Base) MCG/ACT active 218848 RXNORM 2 puff Inhalat ion as needed PRN 2 puff inhale orally every 6 hours as needed for SOB, wheezi ng 2024 - Losartan Potassium Oral Tablet 50 MG active 253284 RXNORM 1 tablet Oral one time a day Routine Give 1 tablet by mouth one time a day for HTN HOLD if SPB<10 0 or HR<60 2024 - Clopidogrel Bisulfate Oral Tablet 75 MG active 879803 RXNORM 1 tablet Oral one time a day Routine Give 1 tablet by mouth one time a day for hx stroke 2024 - Gabapentin Oral Capsule 100 MG active 879113 RXNORM 1 capsul e Oral at bedtime Routine Give 1 capsul e by mouth at bedtim e for pain/L DD 2024 - Fluticasone Propionate Nasal Suspension 50 MCG/ACT active 836938 7 RXNORM 1 spray Nasal one time a day Routine 1 spray in both nostri ls one time a day for allerg ies 2024 - metFORMIN HCl Oral Tablet 500 MG active 696651 RXNORM 1 tablet Oral one time a day Routine Give 1 tablet by mouth one time a day for DM 2024 - Simvastatin Oral Tablet 20 MG active 460520 RXNORM 1 tablet Oral at bedtime Routine Give 1 tablet by mouth at bedtim e for hyperl ipidem ia 2024 - Bisacodyl EC Oral Tablet Delayed Release 5 MG active 1 tablet Oral as needed PRN Give 1 tablet by mouth every 24 hours as needed for consti pation No BM x 3 days or more 2024 - Topiramate Oral Tablet 200 MG active RXNORM 1 tablet Oral two times a day Routine Give 1 tablet by mouth two times a day for seizur e-like activi ty 2024 - Montelukast Sodium Oral Tablet 10 MG active 20010822 RXNORM 1 tablet Oral at bedtime Routine Give 1 tablet by mouth at bedtim e for asthma /aller gies 2024 - Aspirin 81 Oral Tablet Delayed Release 81 MG active 1 tablet Oral one time a day Routine Give 1 tablet by mouth one time a day for hx of stroke 2024 - Clotrimazole Cream 1 % active 858239 RXNORM n/a n/a Topical as needed PRN Apply to bilate ral feet topica lly every 12 hours as needed for athlet es foot May keep at bedsid e and apply as needed 2024 - Vitamin B-12 Tablet 1000 MCG active 643747 RXNORM 2 tablet Oral one time a day Routine Give 2 tablet by mouth one time a day for supple ment 2024 - Sertraline HCl Oral Tablet aborted 150 mg Oral one time a day Routine Give 150 mg by mouth one time a day for MDD 01/12 Triamcinolone Acetonide External Cream 0.025 % active 211994 4 RXNORM n/a n/a Topical as needed PRN Apply to BLE, BUE, abdome n, etc topica lly every 8 hours as needed for rash-l ivana areas May keep at bedsid e and apply as needed 2024 - Meloxicam Oral Tablet 15 MG active 867795 RXNORM 1 tablet Oral one time a day Routine Give 1 tablet by mouth one time a day for pain/L DD 2024 - Fluticasone-S almeterol Inhalation Aerosol Powder Breath Activated 250-50 MCG/ACT active 004824 RXNORM 1 puff Inhalat ion two times a day Routine 1 puff inhale orally two times a day for asthma , emphys ru 2024 - Potassium Chloride ER Tablet Extended Release 10 MEQ active 425490 RXNORM 1 tablet Oral one time a day Routine Give 1 tablet by mouth one time a day for hypoka lemia 2024 - Jardiance Oral Tablet 25 MG active 332383 8 RXNORM 1 tablet Oral one time a day Routine Give 1 tablet by mouth one time a day 2024 - Georgina-Tussin DM Oral Liquid 10-100 MG/5ML active 10 ml Oral as needed PRN Give 10 ml by mouth every 6 hours as needed for reliev e cough, loosen mucus. 2024 - Amitriptyline HCl Oral Tablet active 25 mg Oral at bedtime Routine Give 25 mg by mouth at bedtim e for depres narciso for 1 Week AND Give 50 mg by mouth at bedtim e for depres narciso for 1 Week AND Give 75 mg by mouth at bedtim e for depres narciso for 1 Week 01/20 50 mg Oral at bedtime Routine Give 25 mg by mouth at bedtim e for depres narciso for 1 Week AND Give 50 mg by mouth at bedtim e for depres narciso for 1 Week AND Give 75 mg by mouth at bedtim e for depres narciso for 1 Week 01/27 75 mg Oral at bedtime Routine Give 25 mg by mouth at bedtim e for depres narciso for 1 Week AND Give 50 mg by mouth at bedtim e for depres narciso for 1 Week AND Give 75 mg by mouth at bedtim e for depres narciso for 1 Week 02/03 Sertraline HCl Oral Tablet active 100 mg Oral one time a day Routine Give 100 mg by mouth one time a day for depres narciso for 1 Week AND Give 50 mg by mouth one time a day for depres narciso for 1 Week 01/20 50 mg Oral one time a day Routine Give 100 mg by mouth one time a day for depres narciso for 1 Week AND Give 50 mg by mouth one time a day for depres narciso for 1 Week 01/27 Amitriptyline HCl Oral Tablet 100 MG active 258553 RXNORM 1 tablet Oral at bedtime Routine Give 1 tablet by mouth at bedtim e for depres narciso 2024 - Mental Status Section Date Assessment Total Score Description 12/12/2024 BIMS 15 cognitively int act CAM 0 No delirium ind icated PHQ-9 12 moderate depres narciso Problems Problem # Description Date of onset Resolved Date Code CodeSystem Concern Status 1 EDEMA, UNSPECIFIED 12/27/[address] active 2 HYPOKALEMIA 12/10/[address] active 3 ATHEROSCLEROTIC HEART DISEASE OF [place] CORONARY ARTERY WITHOUT ANGINA PECTORIS 12/07/[address] active 4 CHRONIC SYSTOLIC (CONGESTIVE) HEART FAILURE 12/07/[address] active 5 CONVERSION DISORDER WITH SEIZURES OR CONVULSIONS 12/07/[address] active 6 ESSENTIAL (PRIMARY) HYPERTENSION 12/07/[address] active 7 HISTRIONIC PERSONALITY DISORDER 12/07/[address] active 8 HYPERLIPIDEMIA, UNSPECIFIED 12/07/[address] active 9 INTERVERTEBRAL DISC DISORDERS WITH RADICULOPATHY, LUMBAR REGION 12/07/[address] active 10 MAJOR DEPRESSIVE DISORDER, RECURRENT SEVERE WITHOUT PSYCHOTIC FEATURES 12/07/[address] active 11 MIGRAINE, UNSPECIFIED, NOT INTRACTABLE, WITHOUT STATUS MIGRAINOSUS 12/07/[address] active 12 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 12/07/[address] active 13 OTHER EMPHYSEMA 12/07/[address] active 14 PAIN IN RIGHT KNEE 12/07/[address] active 15 PANIC DISORDER [EPISODIC PAROXYSMAL ANXIETY] 12/07/[address] active 16 PERSONAL HISTORY OF TRANSIENT ISCHEMIC ATTACK (TIA), AND CEREBRAL INFARCTION WITHOUT RESIDUAL DEFICITS 12/07/[address] active 17 RASH AND OTHER NONSPECIFIC SKIN ERUPTION 12/07/[address] active 18 SUPRAVENTRICULAR TACHYCARDIA, UNSPECIFIED 12/07/[address] active 19 SYNCOPE AND COLLAPSE 12/07/[address] active 20 TYPE 2 DIABETES MELLITUS WITH OTHER SPECIFIED COMPLICATION 12/07/[address] active 21 UNSPECIFIED ASTHMA, UNCOMPLICATED 12/07/[address] active 22 UNSPECIFIED CONVULSIONS 12/07/[address] active 23 UNSPECIFIED OSTEOARTHRITIS, UNSPECIFIED SITE 12/07/[address] active 24 UNSPECIFIED THORACIC, THORACOLUMBAR AND LUMBOSACRAL INTERVERTEBRAL DISC DISORDER 12/07/[address] active 25 UNSPECIFIED VISUAL LOSS 12/07/[address] active 26 VITAMIN D DEFICIENCY, UNSPECIFIED 12/07/19 49941780 [facility] CT active Reason for Referral No Reasons for Referral Entered Diagnostic Results Result Code Code System Date Test Result Interpretation Reference Range Status Notes [id number] [facility] 01/02 CMP-COMPREH ENSIVE METABOLIC PNL / GLYCO-HGBA1 C / B-NATRIURET IC PEP (BNP) Completed Result for: PAYTON RAY ( 1960, F) 3097-3 [facility] 01/01 BUN/CREATIN INE RATIO Value: 25 Units: High 6-22 Final 1759-0 [facility] 01/01 A/G RATIO Value: 1.4 Units: Normal 1.0-2.3 Final 4548-4 [facility] 01/01 GLYCOHEMOGL OBIN-HGBA1C Value: 5.5 Units: % Normal 4.1-6.1 Final 2885-2 [facility] 01/01 PROTEIN, TOTAL Value: 5.6 Units: g/dL Low 6.0-8.3 Final 1751-7 [facility] 01/01 ALBUMIN Value: 3.3 Units: g/dL Low 3.5-5.5 Final 6768-6 [facility] 01/01 ALKALINE PHOS Value: 69 Units: [IU]/L Normal 34-136 Final 1920-8 [facility] 01/01 AST (SGOT) Value: 14 Units: [IU]/L Normal 4-40 Final 1742-6 [facility] 01/01 ALT (SGPT) Value: 11 Units: [IU]/L Normal 4-55 Final 2951-2 [facility] 01/01 SODIUM Value: 143 Units: mEq/L Normal 136-145 Final 2823-3 [facility] 01/01 POTASSIUM Value: 3.9 Units: mEq/L Normal 3.5-5.3 Final 2074-0 [facility] 01/01 CHLORIDE Value: 110 Units: mEq/L Normal 98-110 Final 2027-9 [facility] 01/01 CARBON DIOXIDE (CO2) Value: 21 Units: mEq/L Normal 21-33 Final 2345-7 [facility] 01/01 GLUCOSE Value: 96 Units: mg/dL Normal Final GLUCOSE, FASTING 65-99 mg/dL GLUCOSE, NON-FASTING 65-125 mg/dL 1975-2 [facility] 01/01 BILIRUBIN, TOTAL Value: 0.4 Units: mg/dL Normal 0.2-1.2 Final 58688-2 [facility] 01/01 eAG (Mean Glucose) Value: 111 Units: mg/dL Normal 70-120 Final 95490-4 [facility] 01/01 CALCIUM Value: 8.4 Units: mg/dL Normal 8.4-10.2 Final 98018-7 [facility] 01/01 GFR- Value: 68 Units: mL/min/ {1.73_m 2} Normal >60 Final 04958-0 [facility] 01/01 GFR-NON-AFR ICAN EQUATORIAL GUINEAN Value: 56 Units: mL/min/ {1.73_m 2} Low >60 Final Stage of CKD eGFR (mL/min/1.73 square meters) Stage 1 >/= 90 or > 90 Stage 2 60 - 89 Stage 3 30 - 59 Stage 4 15 - 29 Stage 5 </= 14 or < 15 GFR is reliable for adults 17 to 69 years with stable kidney function. 3094-0 [facility] 01/01 BUN (UREA NITROGEN) Value: 25 Units: mg/dL Normal 7-25 Final 2160-0 [facility] 01/01 CREATININE Value: 1.0 Units: mg/dL Normal 0.6-1.3 Final 46042-1 [facility] 01/01 B-NATRIURET IC PEP (BNP) Value: 121.2 Units: pg/mL High 1-100 Final 51740-3 [facility] 12/29 Chest X-Ray AP/RPO / Report PDF Completed Result for: PAYTON RAY ( 1960, F) 59602-2 [facility] 12/29 Chest X-Ray AP/RPO Final Chest X-Ray AP/RPO:.[place]: Views of the chest (2 VIEWS)Clinica l History: Congestive heart failureTechni que: Two views of the chest obtained on 12/29/24Compar kathy: None.See NoteFindings: The cardiomediast inal silhouette is enlarged. There is pulmonary vascular congestion. The lungs are without focal consolidation or pleural effusion. There is no pneumothorax. The visualized osseous structures demonstrate degenerative changes.Lines and Tubes: None..IMPRESS ION:No gross focal consolidation ...Electronic ally Signed By: Dr. Stuart Castellanos M.D. [facility] 12/29 Report PDF Final See Attachment [id number] 1-0 [facility] 12/25 BASIC MET PNL INCL GFR (BMP) Completed Result for: PAYTON RAY ( 1960, F) 3097-3 [facility] 12/25 BUN/CREATIN INE RATIO Value: 23 Units: High 6-22 Final 68390-0 [facility] 12/25 CALCIUM Value: 8.2 Units: mg/dL Low 8.4-10.2 Final 20263-8 [facility] 12/25 GFR- Value: 68 Units: mL/min/ {1.73_m 2} Normal >60 Final 56784-2 [facility] 12/25 GFR-NON-AFR ICAN EQUATORIAL GUINEAN Value: 56 Units: mL/min/ {1.73_m 2} Low >60 Final Stage of CKD eGFR (mL/min/1.73 square meters) Stage 1 >/= 90 or > 90 Stage 2 60 - 89 Stage 3 30 - 59 Stage 4 15 - 29 Stage 5 </= 14 or < 15 GFR is reliable for adults 17 to 69 years with stable kidney function. 2951-2 [facility] 12/25 SODIUM Value: 146 Units: mEq/L High 136-145 Final 2823-3 [facility] 12/25 POTASSIUM Value: 3.9 Units: mEq/L Normal 3.5-5.3 Final 2074-0 [facility] 12/25 CHLORIDE Value: 113 Units: mEq/L High 98-110 Final 2027-9 [facility] 12/25 CARBON DIOXIDE (CO2) Value: 23 Units: mEq/L Normal 21-33 Final 3094-0 [facility] 12/25 BUN (UREA NITROGEN) Value: 23 Units: mg/dL Normal 7-25 Final 2160-0 [facility] 12/25 CREATININE Value: 1.0 Units: mg/dL Normal 0.6-1.3 Final 2345-7 [facility] 12/25 GLUCOSE Value: 122 Units: mg/dL High Final GLUCOSE, FASTING 65-99 mg/dL GLUCOSE, NON-FASTING 65-125 mg/dL Test Code Code System Name Date CMP-COMPREHENSIVE METABOLIC PNL 01/01/2025 GLYCO-HGBA1C 01/01/2025 CMP-COMPREHENSIVE METABOLIC PNL 01/01/2025 GLYCO-HGBA1C 01/01/2025 CMP-COMPREHENSIVE METABOLIC PNL 01/01/2025 01/01/2025 12/29/2024 BASIC MET PNL INCL GFR (BMP) 12/25/2024 Social History Social History Observation Description Start Date End Date Code Code System Current Smoking Status Tobacco smoking consumption unknown [id number] SNOMED CT Sex Assigned At Female 1960 74114-2 [facility] Gender Identity Vital Signs Code Code System Vitals Name Values and Units Timing Information 8462-4 [facility] Blood Pressure-Diastolic Value=66 Un its=mmHg 01/16/2025 8480-6 [facility] Blood Pressure-Systolic Tffpd=279 Un its=mmHg 01/16/2025 8867-4 [facility] Heart rate Value=64.0 Units=/min 07/2024 17965-6 [facility] Pain Level Value=0.0 01/16/2025 15689-0 [facility] O2 % BldC Oximetry Value=97.0 Units= % 01/16/2025 93152-1 [facility] Weight Mlqau=123.0 Units=Lbs 9279-1 [facility] Respiratory Rate Value=18.0 Units=/m in 12/20/2024 8310-5 [facility] Body Temperature Value=97.9 Units= F 12/20/2024 2339-0 [facility] Blood Sugar Obhvc=850.0 Units=mg/dL 12/20/2024 8302-2 [facility] Height Value=64.0 Units=Inches 12/06/2024
--- OUTSIDE RECORDS SUMMARY | 2025-01-16 11:37 | XMS_ITS | Clinical Summary ---
Author Organization [facility] Address [address] [place] [address] Care Team Providers Care Shoe Trimmer Name Role Phone Unavailable Primary Care Provider Unavailabl e Social History Tobacco Use Types Packs/Day Years Used Date Smoking Tobacco: Never Assessed Comments Unknown Sex and Gender Information Value Date Recorded Sex Assigned at Not on file Legal Sex Female 8:31 AM EST Gender Identity Not on file Sexual Orientation Not on file Plan of Treatment Not on file Insurance MEDICARE [place]ICAID [place]
--- OUTSIDE RECORDS SUMMARY | 2025-01-16 11:37 | XMS_ITS | Encounter Summary ---
[facility] Address [facility] [id number] [address] [place] [address] Care Team Providers Care Machinist Instructor Name Role Phone Yanick Cornejo Gil HAJI Primary Care Provider + Reason for Visit * Reason Onset Date Comments Med Refill 06/19/2024 Encounter Details Date Type Department Care Team (Late st Contact Info) Description 06/19/2024 Refill [facility] [address] [place] [phone] Iveth Hernandez CMA Essential hypertension Social History Tobacco Use Types Packs/Day Years [...] more drinks on one occasion? Never 05/02/2023 Overall Financial Resource Strain (CARDIA) Answe r Date Recorded How hard is it for you to pa y for the very basics like food, housing, medical care, and heating? Not hard at all 05/31/2024 PHQ-2 Answer Date Recorded Total Score 11 06/02/2024 PRAPARE - Transportation Answer Date Re corded In the past 12 months, has l ack of transportation kept you from medical appointments or from getting medications? No 05/19 In the past 12 months, has l ack of transportation kept you from meetings, work, or from getting things needed for daily living? No 05/31/2024 Housing Instability Answer Date Recorde d Are you worried or concerned that in the next two months you may not have stable housing that you own, rent or stay in as a part of a household? No 05/31/2024 Childcare Answer Date Recorded Childcare Unknown 12/27/2018 Employment Answer Date Recorded Employment Unknown 12/27/2018 Hunger Screening Answer Date Recorded Within the past 12 months we worried whether our food would run out before we got money to buy more. Never True 06/06/2024 Within the past 12 months th e food we bought just didn't last and we didn't have money to get more. Never True 06/06/2024 Purpose - Life Answer Date Recorded Purpose and direction in life Unknown Comments Unknown Sex and Gender Information Value Date Recorded Sex Assigned at Not on file Legal Sex Female 8:50 PM EDT Gender Identity Not on file Sexual Orientation Not on file documented as of this encounter Plan of Treatment Upcoming Encounters Date Type Department Care Team ([facility] st Contact Info) Description 03/15/2025 10:00 AM EDT Office Visit [facility] [address] [place] [phone] Yanick Cornejo, ORDER PROCESSING MANAGER-AUTOMOTIVE SERVICE PROFESSIONAL [address] [place] [phone] 06/12/2025 11:00 AM EST Office Visit [facility] [address] [place] [phone] documented as of this encounter Visit Diagnoses Diagnosis Essential hypertension Unspecified essential hypertension documented in this encounter Additional Health Concerns Assessment Noted Time PHQ-9 Depression Total Score: 11 024 7:26 PM EST A Body Mass Index follow-up plan has been documented for the patient 03/16/2024 2:19 PM EDT documented as of this encounter Care Teams Machinist Instructor Relationship Specialty Start Date End Date Yanick Cornejo, ORDER PROCESSING MANAGER-AUTOMOTIVE SERVICE PROFESSIONAL [address] [phone] PCP - General Nurse Practitioner 02/15/24 documented as of this encounter
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
--- OUTSIDE RECORDS SUMMARY | 2025-01-16 11:37 | XMS_ITS | Encounter Summary ---
Author Organization [facility] Address [facility] [id number] [address] [place] [address] Care Team Providers Care Ground Crew Linesman Name Role Phone Clemente Yanick HAJI Primary Care Provider + Encounter Details Date Type Department Care Team (Late st Contact Info) Description 07/21/2024 [facility] [address] [place] [address] [address] [place] [phone] Ref Prov, [place] [address] Social History Tobacco Use Types Packs/Day Years [...] got money to buy more. Never True 07/14/2024 Within the past 12 months th e food we bought just didn't last and we didn't have money to get more. Never True 07/14/2024 Purpose - Life Answer Date Recorded Purpose and direction in life Unknown Comments Unknown Sex and Gender Information Value Date Recorded Sex Assigned at Not on file Legal Sex Female 8:50 PM EDT Gender Identity Not on file Sexual Orientation Not on file documented as of this encounter Plan of Treatment Upcoming Encounters Date Type Department Care Team ([facility] Contact Info) Description 03/15/2025 10:00 AM EDT Office Visit [facility] [address] [place] [phone] Yanick Cornejo, ELEMENTARY TEACHER-STAVE HEWER [address] [place] [phone] 06/12/2025 11:00 AM EST Office Visit [facility] [address] [place] [phone] documented as of this encounter Procedures Procedure Name Priority Date/Time Associated Diagnosis Comments DIABETES EYE EXAM Routine 07/13/2024 documented in this encounter Results * DIABETES EYE EXAM (07/13/2024) 07/13/2024 us Not In System Ref Prov HEALTH MAINTENANCE Final Result MANUALLY TRANSCRIBED RESULTS documented in this encounter Visit Diagnoses Not on filedocumented in this encounter Additional Health Concerns Assessment Noted Time PHQ-9 Depression Total Score: 11 11/15/ 024 7:26 PM EST A Body Mass Index follow-up plan has been documented for the patient 08/14/2024 12:16 PM EST documented as of this encounter Care Teams Ground Crew Linesman Relationship Specialty Start Date End Date Yanick Cornejo, ELEMENTARY TEACHER-STAVE HEWER [address] [place] [phone] PCP - General Nurse Practitioner 02/15/24 documented as of this encounter
--- OUTSIDE RECORDS SUMMARY | 2025-01-16 11:38 | XMS_ITS | Clinical Summary ---
Author Organization [employer] tem Address [facility] [id number] [address] [place] [address] Care Team Providers Care Production Sanitizer Name Role Phone Clemente Yanick HAJI Primary Care Provider + Allergies No known active allergies Medications acetaminophen (TYLENOL EXTRA STRENGTH) 500 mg tablet Take 1 tablet (500 mg total) by mouth every 6 (six) hours as needed. Active bisacodyL (DULCOLAX, BISACODYL,) 5 mg EC tabletIndication s:Family history of colon cancer in father Please see instructional sheet given by physicians office. 4 tablet 04/13/20 24 Active clotrimazole (LOTRIMIN) 1 % creamIndications :Skin yeast infection Apply 1 Application topically in the morning and 1 Application before bedtime. 30 g 05/25/20 24 Active meloxicam (MOBIC) 15 mg tabletIndication s:Chronic bilateral low back pain with left-sided sciatica Take 1 tablet (15 mg total) by mouth in the morning. 30 tablet 11 05/31/20 24 Active fluticasone propionate (FLONASE) 50 mcg/actuation nasal sprayIndications :Seasonal allergies Administer 1 spray into each nostril in the morning. 16 mL 2 05/31/20 24 Active simvastatin (ZOCOR) 20 mg tabletIndication s:Type 2 diabetes mellitus without complication, without long-term current use of insulin ([facility]) Take 1 tablet (20 mg total) by mouth nightly. 30 tablet 11 05/31/20 24 Active albuterol (VENTOLIN HFA) 90 mcg/actuation inhalerIndicatio ns:Mild intermittent asthma without complication Inhale 2 puffs every 6 (six) hours as needed for wheezing or shortness of breath. 18 g 2 05/31/20 24 Active topiramate (TOPAMAX) 100 mg tabletIndication s:Intractable migraine without status migrainosus, unspecified migraine type Take 2 tablets (200 mg total) by mouth in the morning and 2 tablets (200 mg total) before bedtime. 120 tablet 5 07/14/20 24 Active cyanocobalamin (VITAMIN B-12) 2000 MCG tabletIndication s:Vitamin B12 deficiency Take 1 tablet (2,000 mcg total) by mouth in the morning. 30 tablet 11 07/25/19 25 Active cholecalciferol, vitamin D3, 2,000 units capsuleIndicatio ns:Vitamin D deficiency Take 1 capsule (2,000 Units total) by mouth in the morning. 30 capsule 07/26/19 25 Active losartan (COZAAR) 50 mg tabletIndication s:Essential hypertension Take 1 tablet (50 mg total) by mouth in the morning. 30 tablet 08/08/19 25 Active furosemide (LASIX) 20 mg tabletIndication s:Essential hypertension Take 1 tablet (20 mg total) by mouth daily. 30 tablet 11 08/10/19 25 Active clopidogreL (PLAVIX) 75 mg tabletIndication s:Cerebrovascula r accident (CVA), unspecified mechanism (CMS-HCC) Take 1 tablet (75 mg total) by mouth in the morning. 30 tablet 3 08/16/19 25 Active aspirin 81 mgIndications:H/ O: stroke,Cerebrova scular accident (CVA), unspecified mechanism (CMS-HCC) Take 1 tablet (81 mg total) by mouth in the morning. 30 tablet 11 09/07/19 25 Active gabapentin (NEURONTIN) 100 mg capsuleIndicatio ns:Chronic bilateral low back pain with left-sided sciatica Take 1 capsule (100 mg total) by mouth nightly. 30 capsule 2 09/07/19 25 Active ONETOUCH DELICA PLUS LANCET 33 gauge miscIndications: Type 2 diabetes mellitus without complication, without long-term current use of insulin (CMS-HCC) Inject 1 each under the skin in the morning. 100 each 4 09/07/19 25 Active sertraline (ZOLOFT) 100 mg tabletIndication s:Mixed anxiety and depressive disorder Take 1.5 tablets (150 mg total) by mouth in the morning. 135 tablet 3 09/07/19 25 Active blood sugar diagnostic (glucose blood) stripIndications :Type 2 diabetes mellitus without complication, without long-term current use of insulin ([facility]) Check blood sugars daily. Patient needs One Touch Test strips Blue. 100 strip 4 09/07/19 25 Active omeprazole (PriLOSEC) 20 mg capsuleIndicatio ns:Gastroesophag eal reflux disease with esophagitis without hemorrhage Take 1 capsule (20 mg total) by mouth in the morning. 30 capsule 11 09/08/19 25 Active fluticasone propion-salmeter oL (ADVAIR HFA) 115-21 mcg/actuation inhalerIndicatio ns:Mild intermittent asthma without complication Inhale 2 puffs in the morning and 2 puffs before bedtime. 12 g 5 09/19/19 25 Active montelukast (SINGULAIR) 10 mg tabletIndication s:Mild intermittent asthma without complication Take 1 tablet (10 mg total) by mouth nightly. 30 tablet 5 10/19/19 25 Active triamcinolone (KENALOG) 0.025 % ointmentIndicati ons:Rash and nonspecific skin eruption Apply 1 Application topically 3 (three) times a day. 60 g 3 11/10/19 25 Active metFORMIN (GLUCOPHAGE) 500 mg tabletIndication s:Type 2 diabetes mellitus without complication, without long-term current use of insulin ([facility]) Take 1 tablet (500 mg total) by mouth daily with breakfast. 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 Hypokalemia 12/23/2024 Other emphysema 11/09/2024 Severe recurrent major depre ssion without psychotic features 11/09/2024 Supraventricular tachycardia, unspecified 2024 Type 2 diabetes mellitus wit h other specified complication, unspecified whether prison insulin use 07/28/2024 Psychogenic nonepileptic seizure 07/14/2024 H/O: stroke 07/14/2024 H/O deep venous thrombosis 07/14/2024 Lumbar radiculitis 05/29/2024 Postlaminectomy syndrome, lumbar region 11/11/20 24 Lumbar disc disease 04/18/2024 Facet arthritis of lumbar region 04/18/2024 Family hx of colon cancer 03/16/2024 Family hx of ovarian malignancy 03/16/2024 Vitamin D deficiency 02/15/2024 Gastroesophageal reflux dise ase with esophagitis without hemorrhage 02/15/2024 Seasonal allergies 02/15/2024 Mild intermittent asthma without complication Intractable migraine without status migrainosus 02/15/2024 Seizure-like activity 02/15/2024 Abnormal stress test 12/28/2023 Type 2 diabetes mellitus 12/21/2023 Seizure 05/03/2023 HTN (hypertension) 05/01/2023 Hyperlipidemia CHF (congestive heart failure) Resolved Problems Problem Noted Date Diagnosed Date Resolved Date Obesity, Class III, BMI 40-4 9.9 (morbid obesity) 07/28/2024 07/28/2024 History of CVA (cerebrovascular accident) 02/15/2024 02/15/2024 Encounters Date Type Department Care Team Description 12/29/2024 Continuing Care [facility] - Family Medicine [address] [place] [address] Justus Mathew, Congestive heart failure, unspecified HF chronicity, unspecified heart failure type ([facility]) (Primary Dx); Other emphysema (CMS-HCC); Type 2 diabetes mellitus with other specified complication, unspecified whether prison insulin use (CMS-HCC) 12/22/2024 Continuing Care [facility] - Family [facility] [address] [place] [address] Justus Mathew, Severe recurrent major depression without psychotic features (CMS-HCC) (Primary Dx); Histrionic personality disorder ([facility]); Conversion disorder with seizures or convulsions; Facet arthritis of lumbar region; Hypokalemia; Type 2 diabetes mellitus with other specified complication, unspecified whether prison insulin use (CMS-HCC); Hyperlipidemia, unspecified hyperlipidemia type 12/06/2024 Continuing Care [facility] [address] [place] [address] Furlong, Justus G, DO Primary hypertension (Primary Dx); Supraventricular tachycardia, unspecified; Other migraine without status migrainosus, intractable; Mild intermittent asthma without complication; Vitamin D deficiency; Type 2 diabetes mellitus with other specified complication, unspecified whether prison insulin use (CMS-HCC); Lumbar radiculitis; Seizure (CMS-HCC); Lumbar disc disease; H/O: stroke; Postlaminectomy syndrome, lumbar region; Psychogenic nonepileptic seizure; Acute pain of right knee; Severe recurrent major depression without psychotic features (CMS-HCC) 11/20/2024 10:15 AM EDT Office Visit [facility] [address] [place] [phone] Yanick Cornejo, NICOLE-PATENT LEATHER SORTER Severe recurrent major depression without psychotic features (CMS-HCC) (Primary Dx) 11/20/2024 Travel 11/16/2024 [facility] [address] [place] [phone] Liz Rene RMA 11/11/2024 10:14 AM EDT - 11/11/2024 11:59 PM EDT Hospital Encounter [facility] - Lab [address] [place] [address] Type 2 diabetes mellitus with other specified complication, unspecified whether intermediate project manager insulin use (CMS-HCC); Primary hypertension Discharge Disposition: Home 11/09/2024 1:30 PM EDT [facility] [address] [place] [phone] Yanick Cornejo, NICOLE-PATENT LEATHER SORTER Type 2 diabetes mellitus with other specified complication, unspecified whether prison insulin use (CMS-HCC) (Primary Dx); Primary hypertension; Other emphysema (CMS-HCC); Severe recurrent major depression without psychotic features (CMS-HCC); Rash and nonspecific skin eruption; Type 2 diabetes mellitus without complication, without long-term current use of insulin (CMS-HCC); H/O: stroke; Seizure-like activity (CMS-HCC); Lumbar disc disease 11/09/2024 Travel 10/18/2024 [facility]ill [facility] [address] [place] [phone] Samson Polanco, CONCERT OR LECTURE HALL MANAGER-PATENT LEATHER SORTER Mild intermittent asthma without complication from Last 3 Months Immunizations Immunization Administration Dates Next Due Influenza, Injectable, MDCK, Quadrivalent 2020 Influenza, Injectable, Mdck, Preservative Free, Quad 05/02/2018 Influenza, Injectable, quadrivalent (PF) 023,05/23/2022,05/10/2019 Family History Medical History Relation Name Comments Diabetes Brother Hypertension Brother Heart disease Father Heart disease Mother Multiple sclerosis Sister 1 Microcephaly Son 1 No Known Problems Son 2 Relation Name Status Comments Brother Father Mother Niece Alive Sister 1 Sister 2 Son 1 Son 2 Social History Tobacco Use Types Packs/Day Years Used Date Smoking Tobacco: Former Cigarettes Smokeless Tobacco: Never Tobacco Cessation:Counseling Given: Yes Alcohol Use Standard Drinks/Week Comments Not Currently [...] 05/31/2024 PHQ-2 Answer Date Recorded Total Score 0 11/20/2024 PRAPARE - Transportation Answer Date Re corded [...] got money to buy more. Never True 11/20/2024 Within the past 12 months th e food we bought just didn't last and we didn't have money to get more. Never True 11/20/2024 Purpose - Life Answer Date Recorded Purpose and direction in life Unknown Comments No Sex and Gender Information Value Date Recorded Sex Assigned at Not on file Legal Sex Female 8:50 PM EDT Gender Identity Not on file Sexual Orientation Not on file Last Filed Vital Signs Vital Sign Reading Time Taken Comments Blood Pressure 109/63 12/29/2024 4:19 PM EDT Pulse 66 12/29/2024 4:19 PM EDT Temperature 36.6 C (97.9 F) 12/29/2024 4:19 PM EDT Respiratory Rate 18 12/29/2024 4:19 PM EDT Oxygen Saturation 99% 12/29/2024 4:19 PM EDT Inhaled Oxygen Concentration - - Weight 89.6 kg (197 lb 9.6 oz) 12/29/2024 4:19 P M EDT Height 162.6 cm (5' 4 ) 11/20/2024 10:31 AM EDT Body Mass Index 33.92 11/20/2024 10:31 AM EDT Plan of Treatment Upcoming Encounters Date Type Department Care Team ([facility] Contact Info) Description 03/15/2025 10:00 AM EDT Office Visit [facility] [address] [place] [phone] Yanick Cornejo, CONCERT OR LECTURE HALL MANAGER-PATENT LEATHER SORTER [address] [place] [phone] 06/12/2025 11:00 AM EST Office Visit [facility] [address] [place] [phone] Health Maintenance Due Date Last Done Comments Diabetic Foot Exam 01/18/1980 DTaP,Tdap and Td Vaccines (1 - Tdap) 1981 Zoster (Shingles) Vaccine (1 of 2) 01/18/2012 COVID-19 Vaccine ( - 2023-2 5 season) 2024 05/23/2022, 02/18/2021, 01/28/2021 Mammogram 12/14/2024 12/15/2023 Influenza Vaccine 03/19/2025 04/26/2023, , 05/08/2021, Additional history exists Diabetic Ophthalmology Exam 07/13/2025 07/13/2024 Adult BMI Follow Up Plan 07/14/2025 07/14/2024 Depression Screening 11/20/2025 11/20/2024 Tobacco Screening 12/06/2025 12/06/2024 Adult BMI Screening 12/29/2025 12/29/2024 Pap Smear 03/16/2027 03/16/2024, 03/16/2024 Colonoscopy 08/02/2034 08/02/2024, 08/02/2024 Medical Devices Not on file Procedures Procedure Name Priority Date/Time Associated Diagnosis Comments MICROALBUMIN / CREATININE URINE RATIO Routine 11/11/2024 10:15 AM EDT Type 2 diabetes mellitus with other specified complication, unspecified whether prison insulin use ([facility]) Primary hypertension THYROID PROFILE INCLUDES TSH FT4 Routine 11/11/2024 10:14 AM EDT Type 2 diabetes mellitus with other specified complication, unspecified whether intermediate project manager insulin use ([facility]) Primary hypertension LIPID PROFILE Routine 11/11/2024 10:14 AM EDT Type 2 diabetes mellitus with other specified complication, unspecified whether intermediate project manager insulin use ([facility]) Primary hypertension POCT HEMOGLOBIN A1C Routine 11/09/2024 2 :08 PM EDT Type 2 diabetes mellitus with other specified complication, unspecified whether intermediate project manager insulin use ([facility]) PROVATION COLONOSCOPY Routine 08/02/2024 10:27 AM EST HM DIABETES EYE EXAM Routine 07/13/2024 HIGH RISK HPV W/ANNAMARIE Routine 03/16/2024 5:28 AM EDT Encounter for screening for malignant neoplasm of cervix from Last 3 Months or Most Recently Relevant to Health Maintenance Results * (ABNORMAL) Microalbumin - Albumin: Creatinine Urine Ratio (11/11/2024 10:15 AM EDT) Microalbumin urine 2.0(H) 0.0 - 1.9 mg/dL 11/11/2024 3:52 PM EDT [facility] Urine creat 191.09 mg/dL 11/11/2024 3:52 PM EDT [facility] Alb/creat ratio 10.5 0.0 - 30.0 mg/g creat 11/11/2024 3:52 PM EDT [facility] Urine / Unknown 11/11/2024 1 0:15 AM EDT 11/11/2024 10:16 AM EDT us Yanick Cornejo CONCERT OR LECTURE HALL MANAGER-PATENT LEATHER SORTER URINE ORDERABLES Final R esult Performing Organization Address City/[facility]/ZIP Co de Phone Number [facility] [address] [place] [address] * Thyroid profile includes TSH FT4 (11/11/2024 10:14 AM EDT) TSH 1.86 0.49 - 4.67 uIU/mL 11/11/2024 3:46 PM EDT [facility] T4, free 0.74 0.61 - 1.60 ng/dL 11/11/2024 3:50 PM EDT [facility] PLASMA 11/11/2024 10:1 4 AM EDT 11/11/2024 10:16 AM EDT us Yanick Cornejo CONCERT OR LECTURE HALL MANAGER-PATENT LEATHER SORTER LAB BLOOD ORDERABLES Fin al Result Performing Organization Address [facility]/ZIP Co de Phone Number [facility] [address] [place] [address], [address] [address] * Lipid profile (11/11/2024 10:14 AM EDT) Cholesterol 168 150 - 200 mg/dL 11/11/2024 3:50 PM EDT [facility] Triglycerides 89 27 - 150 mg/dL 11/11/2024 3:50 PM EDT [facility] HDL Cholesterol 48 >39 mg/dL 3:50 PM EDT [facility] Comment: HDL <40 mg/dL - High Risk HDL > or = 40mg/dL- Desirable HDL >60 mg/dL - Negative Risk VLDL 18 0 - 30 mg/dL 11/11/2024 3:50 PM EDT [facility] LDL (calc) 102 <130 mg/dL 11/11/2024 3:50 PM EDT [facility] Comment: LDL <100 mg/dL - Desirable LDL >160 mg/dL - High Risk Cholesterol:HDL Ratio 3.5 1.0 - 5.0 11/11/2024 3:50 PM EDT [facility] Blood (PLASMA) 11/11/2024 10 :14 AM EDT 11/11/2024 10:16 AM EDT us Yanick Cornejo APRN-PATENT LEATHER SORTER LAB BLOOD ORDERABLES Fin al Result DIVINE [facility] [address], [address] [place] [address] * POCT Hemoglobin A1c (11/09/2024 2:08 PM EDT) External Poct Hgb A1C 5.4 4 - 7 % MANUALLY TRANSCRIBED RESULTS ADA Target < 8 Yes DIMITRYA ANILA TRANSCRIBED RESULTS Blood 11/09/2024 2:08 PM EDT Yanick Cornejo APRN-PATENT LEATHER SORTER POINT OF CARE TEST ORDER MARK Final Result MANUALLY TRANSCRIBED RESULTS * Colonoscopy Report (08/02/2024 10:27 AM EST) Narrative SYSTEMGENERATED, DOCUMENTATION - 08/02/2024 10:27 AM EST This order has been auto-finalized for image and report archival in PACs. *For full report details, please reach out to your physician. This image is visible to you in MyChart.* us James Jackson MD IMG OR IMG ORDERABLES Crystal l Result * HM DIABETES EYE EXAM (07/13/2024) 07/13/2024 us Not In System Ref Prov HEALTH MAINTENANCE Final Result Performing Organization Address City/[facility]/ZIP Co de Phone Number MANUALLY TRANSCRIBED RESULTS * High risk HPV w/annamarie (03/16/2024 5:28 AM EDT) Hpv specimen type ThinPrep 03/17/2024 5:28 AM EDT [facility] Hpv 16 Negative Negative^N egative 03/18/2024 6:04 AM EDT [facility] Hpv 18 Negative Negative^N egative 03/18/2024 6:04 AM EDT [facility] Other high risk hpv Negative Negative^N egative 03/18/2024 6:04 AM EDT [facility] Comment: HPV types 31,33,35,39,45,52,56,58,59,66 and 68 DNA were undetectable. THINP 03/16/2024 5:28 AM EDT 03/17/2024 5:29 AM EDT us Tracie Clancy APRN-CNM LAB BLOOD ORDERABLES F inal Result [address] [facility] [address], [address] [place] [address] from Last 3 Months or Most Recently Relevant to Health Maintenance Insurance MEDICAID [place] MEDICARE Advance Directives Documents on File Type Date Recorded Patient Formulator Compounder Expl anation Durable Power of Automatic Hemmer 02/15/2024 4:12 PM POA 02/11/24 * Full Code (Latest Code Status on File) Date Activated Date Inactivated Comments 05/02/2023 6:38 PM 05/03/2023 8:22 PM Care Teams Production Sanitizer Relationship Specialty Start Date End Date Yanick Cornejo, CONCERT OR LECTURE HALL MANAGER-PATENT LEATHER SORTER [address] [place] [phone] PCP - General Nurse Practitioner 02/15/24
--- OUTSIDE RECORDS SUMMARY | 2025-01-16 11:38 | XMS_ITS | Encounter Summary ---
Author Organization [employer] tem Address [id number] [address] [place] [address] Care Team Providers Care Tree Sapper Name Role Phone Yanick Cornejo Gil HAJI Primary Care Provider + Encounter Details Date Type Department Care Team (Late st Contact Info) Description 02/16/2024 [facility] [address] [place] [address] Karen Giron Social History Tobacco Use Types Packs/Day Years [...] got money to buy more. Never True 02/15/2024 Within the past 12 months th e food we bought just didn't last and we didn't have money to get more. Never True 02/15/2024 Purpose - Life Answer Date Recorded Purpose and direction in life Unknown Comments Unknown Sex and Gender Information Value Date Recorded Sex Assigned at Not on file Legal Sex Female 8:50 PM EDT Gender Identity Not on file Sexual Orientation Not on file documented as of this encounter Miscellaneous Notes * Telephone Encounter - Karen Giron - 02/16/2024 9:09 AM EDT Nicol, we've received a TOOL HARDENER referral for pt. Please reach out to sched TOOL HARDENER appt, thank you! * Telephone Encounter - My Montes MA - 02/16/2024 9:09 AM EDT Called pt to schedule TOOL HARDENER appt per PCP referral, no answer. LMOM. NICOLAW documented in this encounter Plan of Treatment Upcoming Encounters Date Type Department Care Team ([facility] st Contact Info) Description 03/15/2025 10:00 AM EDT Office Visit [facility] [address] [place] [phone] Yanick Cornejo, HAZARDOUS MATERIAL SPECIALIST-BRUSH STAINER [address] [phone] 06/12/2025 11:00 AM EST Office Visit [facility] [address] [place] [phone] documented as of this encounter Visit Diagnoses Not on filedocumented in this encounter Additional Health Concerns Assessment Noted Time PHQ-9 Depression Total Score: 2 02/15/20 9:44 AM EDT documented as of this encounter Care Teams Tree Sapper Relationship Specialty Start Date End Date Yanick Cornejo, HAZARDOUS MATERIAL SPECIALIST-BRUSH STAINER [address] [phone] PCP - General Nurse Practitioner 02/15/24 documented as of this encounter
--- OUTSIDE RECORDS SUMMARY | 2025-01-16 11:38 | XMS_ITS | Encounter Summary ---
Author Organization [facility] tem Address [id number] [address] [place] [address] Care Team Providers Care Pet Care Attendant Name Role Phone ClementeYanick Gil HAJI Primary Care Provider + Reason for Visit * Reason Onset Date Comments GENETICS 03/17/2024 CLERICAL Encounter Details Date Type Department Care Team (Late st Contact Info) Description 03/17/2024 Telephone [facility] -GENETICS [address] [place] [id number] [facility] [address] [place] [address] GENETICS (CLERICAL) Social History Tobacco Use Types Packs/Day Years [...] encounter Miscellaneous Notes * Telephone Encounter - Cristiane Hartmann - 03/17/2024 10:33 AM EDT 03/17/24 called pt re: PH, pt's POA Joan answered. After confirming that she was on pt's HIPAA, I asked if pt had any PH due to insur. Joan confirmed that pt did not. I explained self-pay rate, Joan will discuss w/pt and call back. sj documented in this encounter Plan of Treatment Upcoming Encounters Date Type Department Care Team (Late st Contact Info) Description 03/15/2025 10:00 AM EDT Office Visit [facility] [address] [place] [phone] Yanick Cornejo, NICOLE-MEAGHAN [address] [place] [phone] 06/12/2025 11:00 AM EST Office Visit [facility] [address] [phone] documented as of this encounter Visit Diagnoses Not on filedocumented in this encounter Additional Health Concerns Assessment Noted Time PHQ-9 Depression Total Score: 2 02/15/20 24 9:44 AM EDT A Body Mass Index follow-up plan has been documented for the patient 03/16/2024 2:19 PM EDT documented as of this encounter Care Teams Pet Care Attendant Relationship Specialty Start Date End Date Yanick Cornejo APRN-PARAPROFESSIONAL INTERPRETER [address] [place] [phone] PCP - General Nurse Practitioner 02/15/24 documented as of this encounter
--- OUTSIDE RECORDS SUMMARY | 2025-01-16 11:38 | XMS_ITS ---
Author Organization [facility] Care Team Providers Care Environmental Services Coordinator Name Role Phone Ilda Etienne Unavailable Unavailable Johnnie Salgado Unavailable Unavailable Sofía London Unavailable Unavailable Gin Martin Unavailable Unavailable My Hare Unavailable Unavaila Melina Cooper Unavailable Unavailable Radha Dominguez Unavailable Unavailyareli Acosta MANAGER FORMSLaura Unavailable Unavailable Bakies, Ladi Unavailable Unavailable Hamida Parsons Unavailable Unavailable Deja MARTÍNEZCMarilyn Unavailable Unavailable Allergies and adverse reactions No Known Allergies Care Team Name Role Address Phone Organization Dates Gin Martin [address], [address], [facility] (Office): : [facility] 09/10/2023 - 09/24/2023 Ilda Etienne [address] [place] [address], [address], [place] (Office): [facility] 09/10/2023 - 09/24/2023 Johnnie Salgado [address], [address], [place] (Office): : : [facility] 09/10/2023 - 09/24/2023 Sofía London [address] [place], [address], [place] (Office): [facility] 09/10/2023 - 09/24/2023 My montgomery Payam [address] [place], [address], [place] (Office): : : [facility] 09/10/2023 - 09/24/2023 Melina Olmstead [address] [place], [address], [place] (Cell): : [facility] 09/10/2023 - 09/24/[address], [phone], [facility] (Cell): [facility] 09/10/2023 - 09/24/2023 Laura Acosta MANAGER FORMS [address] [place], [address], [facility] (Office): : : [facility] 09/10/2023 - 09/24/2023 Ladi Huertas [facility] (Cell): [facility] 09/10/2023 - 09/24/2023 Hamida Parsons [address] [place], [address], [place] (Office): : [facility] 09/10/2023 - 09/24/2023 Marilyn Short MANAGER FORMS-C [address] [address], [place], [address], [facility] (Cell): : : [facility] 09/10/2023 - 09/24/2023 Immunizations Immunization Status Vaccine Details Vaccine Code CodeSystem Jean e Notes Influenza completed Influenza, high-dose, split virus, quadrivalent, injectable, preservative free 197 CVX created date: 09/10/2023 administered date: 04/26/2023 Problems Problem # Description Date of onset Resolved Date Code CodeSystem Concern Status 1 ANEMIA, UNSPECIFIED 09/10/[address] active 2 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 09/10/[address] active 3 ESSENTIAL (PRIMARY) HYPERTENSION 09/10/[address] active 4 HYPERLIPIDEMIA, UNSPECIFIED 09/10/[address] active 5 PAPER CONSERVATOR (CURRENT) USE OF ORAL HYPOGLYCEMIC DRUGS 09/10/[address] active 6 MAJOR DEPRESSIVE DISORDER, RECURRENT SEVERE WITHOUT PSYCHOTIC FEATURES 09/10/[address] active 7 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 09/10/[address] active 8 PANIC DISORDER [EPISODIC PAROXYSMAL ANXIETY] 09/10/[address] active 9 TYPE 2 DIABETES MELLITUS WITHOUT COMPLICATIONS 09/10/[address] active 10 UNSPECIFIED ASTHMA, UNCOMPLICATED 09/10/[address] active 11 UNSPECIFIED OSTEOARTHRITIS, UNSPECIFIED SITE 09/10/[address] active Reason for Referral No Reasons for Referral Entered Social History Social History Observation Description Start Date End Date Code Code System Current Smoking Status Tobacco smoking consumption unknown 897121322 SNOMED CT Sex Assigned At Female 1960 [address]-9 [facility] Gender Identity Vital Signs Code Code System Vitals Name Values and Units Timing Information 9279-1 [facility] Respiratory Rate Value=16.0 Units=/m in 09/24/2023 8462-4 [facility] Blood Pressure-Diastolic Value=45 Un its=mmHg 09/24/2023 8480-6 [facility] Blood Pressure-Systolic Mmiss=535 Un its=mmHg 09/24/2023 8867-4 LOINC Heart rate Value=66.0 Units=/min 02/2024 27908-5 INC O2 % BldC Oximetry Value=99.0 Units= % 09/24/2023 00628-7 [facility] Pain Level Value=0.0 09/24/2023 2339-0 [facility] Blood Sugar Osirb=714.0 Units=mg/dL 09/24/2023 69445-6 [facility] Weight Rhcmd=370.1 Units=Lbs 02/2024 8310-5 [facility] Body Temperature Value=98.7 Units= F 09/24/2023 8302-2 [facility] Height Value=65.0 Units=Inches 09/11/2023
--- OUTSIDE RECORDS SUMMARY | 2025-01-16 11:38 | XMS_ITS | Encounter Summary ---
Author Organization [facility] tem Address [id number] [address] [place] [address] Care Team Providers Care Cashier Manager Name Role Phone Yanick Cornejo APRN-MEAGHAN Primary Care Provider + Encounter Details Date Type Department Care Team (Late st Contact Info) Description 03/21/2024 Telephone [facility] Certified Nurse Clinical Research Assistant - [address] [phone] Brunilda Burnham Social History Tobacco Use Types Packs/Day Years [...] encounter Miscellaneous Notes * Telephone Encounter - Brunilda Burnham - 03/21/2024 2:36 PM EDT Patient called stating the cream that was prescribed is not covered by her insurance and asked if there is something else that can be prescribed. * Telephone Encounter - Lucy Rowan CMA - 03/21/2024 2:36 PM EDT Tried calling patient, l/m to call our office back * Telephone Encounter - Lucy Rowan CMA - 03/21/2024 2:36 PM EDT Spoke with patient, she verbalized understanding that new Rx was sent over. documented in this encounter Plan of Treatment Upcoming Encounters Date Type Department Care Team ([facility] st Contact Info) Description 03/15/2025 10:00 AM EDT Office Visit [facility] [address] [place] [phone] Yanick Cornejo, ORDER EXPEDITER-MAP MAKER [address] [address] 06/12/2025 11:00 AM EST Office Visit [facility] [address] [place] [phone] documented as of this encounter Visit Diagnoses Not on filedocumented in this encounter Additional Health Concerns Assessment Noted Time PHQ-9 Depression Total Score: 2 02/15/20 24 9:44 AM EDT A Body Mass Index follow-up plan has been documented for the patient 03/16/2024 2:19 PM EDT documented as of this encounter Care Teams Cashier Manager Relationship Specialty Start Date End Date Yanick Cornejo, ORDER EXPEDITER-MAP MAKER [address] [place] [phone] PCP - General Nurse Practitioner 02/15/24 documented as of this encounter
== END 2025-01-16 12:42 | disposition home or self-care (01) ==
PROVIDERS: Emergency Provider Student in an Organized Health Care Education/Training Program; PCP Family Medicine
DX: F44.5 Conversion disorder with seizures or convulsions (principal); F32.A Depression, unspecified; E11.9 Type 2 diabetes mellitus without complications; I10 Essential (primary) hypertension; Z86.73 Personal history of transient ischemic attack (TIA), and cerebral infarction without residual deficits; Z79.84 Long term (current) use of oral hypoglycemic drugs
CPT/HCPCS: 36415; 70450; 80048; 81001; 84484; 85025; 93005; 99285